=== PATIENT | female | born 1960 | race Caucasian/White ===

== ENCOUNTER 2024-09-09 13:21 | Outpatient (AMB) | payer MEDICAID, SELFPAY ==
[2024-09-09 13:36] VITALS: BP 114/73; PULSE 74; RESP 18; TEMP 36.4; O2SAT 98; BMI 25.0
--- NOTE | 2024-09-09 13:36 | PD.ORTHCLVIS ---
Vital signs 09/09/24 13:36 Height 1.6 m Height Method Stated Weight 64.07 kg Weight Measurement Method Standing Scale BMI 25.0 BP 114/73 Blood Pressure Source Automatic Cuff Blood Pressure Location Left Upper Arm Position Sitting Respiration 18 Pulse 74 Pulse Source Monitor Temp 97.5 F Temp Source Temporal Artery Scan Pulse Oximetry (%) 98 Oxygen Delivery Method Room Air Med/Allergies Allergies & Medications Allergies No Known Allergies Allergy (Verified 09/09/24 13:37) Medication Reconciliation baclofen 10 mg tablet 10 mg PO QDAY 09/09/24 [History Confirmed 09/09/24] cholecalciferol (vitamin D3) 10 mcg (400 unit) capsule 10 mcg PO QDAY 09/09/24 [History Confirmed 09/09/24] fluconazole 100 mg tablet 100 mg PO QDAY 09/09/24 [History Confirmed 09/09/24] folic acid 1 mg tablet 1 mg PO QDAY 09/09/24 [History Confirmed 09/09/24] gabapentin 400 mg capsule 400 mg PO BID 09/09/24 [History Confirmed 09/09/24] meloxicam 15 mg tablet 15 mg PO QDAY 09/09/24 [History Confirmed 09/09/24] sertraline 50 mg tablet 50 mg PO QDAY 09/09/24 [History Confirmed 09/09/24] solifenacin 10 mg tablet 10 mg PO QDAY 09/09/24 [History Confirmed 09/09/24] Exam Exam Breathing is nonlabored. Patient has a normal mood and affect. Bilateral extremities were evaluated and demonstrates sensation intact to light touch. Palpable pedal pulses are present. No significant edema is present. Bilateral hips were examined. The patient has no pain with log roll of the hips. Internal rotation to 30 degrees and external rotation to 30 degrees is painless. Negative FADIR. Left knee incision is clean dry and intact The right knee was also examined. The right knee is in varus alignment. Range of motion from 0-115 degrees. Knee is stable to varus and valgus as well as AP translation with <5mm. Patient has a negative McMurrays. There is no pain with patellofemoral compression and no crepitus noted. The knee is tender to palpation medially. Assessment and Plan Problem List (1) Arthritis of right knee: Status: Acute Plan: Patient is a 63-year-old female with right knee pain and right knee arthritis of significant severity. I would like to get weightbearing x-rays. We can discuss different treatment options depending on what that she has. She is post start physical therapy in 2 weeks as well Office Procedures GNS Level of Care Nursing/Assessment Patient Status: Initial/New Patient Nursing Assessment/Reassesment: Medication Reconciliation, Update PMH in EMR and Vital Signs Coordination of Care: Complex Care and Chronic Disease 1-5, Education Complex Pt/Fam, Consent,records obtained, informed consent, 1 Ins Authorization, Lab and Imaging orders, Results/Orders obtained and Staff clarify orders New Patient Charge New Patient Point Assignment: 1124 New Patient Point Charge: VALVE AND REGULATOR REPAIRER Level 4 ([id number]) MA Intake Visit Data Collection New Patient or Established: New Patient (never been to [facility]) Reason for Visit:: RIGHT KNEE PAIN Seen by Clinical Staff ONLY (RN/MA): No PCP or OBGYN visit in last 3 months: Yes Hx Now: No Do You Feel Safe at Home: Yes Authorities Contacted: N/A Questionairres Past Medical History Past Medical History Have you ever been diagnosed with any of the following: Respiratory Problems Smoking: No Smoking Exposure: No Musculoskeletal Problems Rheumatoid Arthritis: Yes Surgical History Total Knee Replacement: Yes (01/08/2024 DR GALINA RODRIGUEZ) Subjective Visit Visit for: new patient and knee Immunization / Flu Flu Vaccine in the Last 12 Months: No Flu Vaccine Exclusion Criteria: No Exclusion Criteria History of Present Illness Chief complaint: right knee pain Date of 1st surgery (if applicable): 08/2023 Mirtha is a pleasant 63-year-old female with right knee pain and right knee arthritis of significant severity. She had a recent left total knee replacement exactly 1 year ago. She had multiple injections and has rheumatoid arthritis and takes meloxicam and rheumatoid arthritis medications. She is not on an immunomodulators at this time. She reports the pain is excruciating Personal History Occupation: [employer] Pain Pain level (0-10): 10 Pain duration: CONSTANT Pain location: inside (medial), outside (lateral), anterior and posterior Pain quality: sharp, dull and aching Pain timing: night, increases with activity and stairs Associated signs & symptoms: weakness Ambulatory data Ambulatory device: cane Treatments Number of previous injections: 1 Improvement with previous injections: No Improvement with PT: No Improvement with NSAIDS: no Review of Systems Review of Systems: All systems negative unless otherwise noted in HPI.
--- NOTE | 2024-09-09 13:54 | XR_ITS ---
Examination: Bilateral AP knees single view PA lateral axial right knee 3 views TECHNIQUE: Bilateral AP knees standing single view PA standing right knee flexion, standing lateral right knee, axial right knee 3 views total 4 views Exam date and time: September 09, 2024 1404 hours INDICATIONS: Right knee pain months getting worse FINDINGS: Prominent osteopenia Advanced narrowing lateral joint space right knee Moderate to advanced narrowing medial joint space right knee Mild to moderate narrowing patellofemoral joint No right or left knee fracture Total left knee arthroplasty with satisfactory alignment IMPRESSION: Advanced narrowing lateral joint space right knee Moderate to advanced medial joint space right knee
== END 2024-09-09 14:02 | disposition home or self-care (01) ==
LOC: HODSRG 13:21
PROVIDERS: PCP Family Medicine; Referring Provider Family Medicine; Supervising Provider Orthopaedic Surgery Adult Reconstructive Orthopaedic Surgery; Visit Provider Orthopaedic Surgery Adult Reconstructive Orthopaedic Surgery
DX: M17.11 Unilateral primary osteoarthritis, right knee (principal); M25.562 Pain in left knee; M25.561 Pain in right knee; Z96.652 Presence of left artificial knee joint
CPT/HCPCS: 73564; 99204; G0463

== ENCOUNTER 2024-10-02 13:44 | Outpatient (AMB) | payer MEDICAID, SELFPAY ==
--- NOTE | 2024-10-02 13:52 | ORTHONT_ITS ---
Vital signs 10/02/24 13:53 Height 1.6 m Height Method Stated Weight 67.188 kg Weight Measurement Method Standing Scale BMI 26.2 BP 104/76 Blood Pressure Source Automatic Cuff Blood Pressure Location Right Upper Arm Position Sitting Respiration 18 Pulse 92 Pulse Source Monitor Temp 98.2 F Temp Source Temporal Artery Scan Pulse Oximetry (%) 97 Oxygen Delivery Method Room Air Med/Allergies Allergies & Medications Allergies No Known Allergies Allergy (Verified 10/02/24 13:54) Medication Reconciliation baclofen 10 mg tablet 10 mg PO QDAY 09/09/24 [History Confirmed 10/02/24] cholecalciferol (vitamin D3) 10 mcg (400 unit) capsule 10 mcg PO QDAY 09/09/24 [History Confirmed 10/02/24] fluconazole 100 mg tablet 100 mg PO QDAY 09/09/24 [History Confirmed 10/02/24] folic acid 1 mg tablet 1 mg PO QDAY 09/09/24 [History Confirmed 10/02/24] gabapentin 400 mg capsule 400 mg PO BID 09/09/24 [History Confirmed 10/02/24] meloxicam 15 mg tablet 15 mg PO QDAY 09/09/24 [History Confirmed 10/02/24] sertraline 50 mg tablet 50 mg PO QDAY 09/09/24 [History Confirmed 10/02/24] solifenacin 10 mg tablet 10 mg PO QDAY 09/09/24 [History Confirmed 10/02/24] Exam Exam Breathing is nonlabored. Patient has a normal mood and affect. Bilateral extremities were evaluated and demonstrates sensation intact to light touch. Palpable pedal pulses are present. No significant edema is present. Bilateral hips were examined. The patient has no pain with log roll of the hips. Internal rotation to 30 degrees and external rotation to 30 degrees is painless. Negative FADIR. Left knee incision is clean dry and intact The right knee was also examined. The right knee is in varus alignment. Range of motion from 0-115 degrees. Knee is stable to varus and valgus as well as AP translation with <5mm. Patient has a negative McMurrays. There is no pain with patellofemoral compression and no crepitus noted. The knee is tender to palpation medially. X-rays from [facility] demonstrates complete joint space obliteration laterally and Assessment and Plan Problem List (1) Arthritis of right knee: Status: Acute Plan: Patient is a 63-year-old female with right knee pain and right knee arthritis of significant severity. She would like to try cortisone injection today. Recommend knee cortisone injection as patient would like to proceed with conservative treatment at this time. The risks and benefits of the procedure were reviewed with the patient and patient gave verbal consent to continue with the procedure. Procedure: performed by Dr. Moreira Using sterile technique the Right knee was thoroughly prepped with alcohol, and approximately 1 cc of Kenalog 40 mg/mL and 4 cc of 1% lidocaine was injected without resistance into the medial tibial femoral joint space. The patient to lerated the procedure. Office Procedures GNS Level of Care Nursing/Assessment Patient Status: Established Patient Nursing Assessment/Reassesment: Medication Reconciliation, Update PMH in EMR and Vital Signs Coordination of Care: Complex Care and Chronic Disease 1-5, Education Complex Pt/Fam, Consent,records obtained, informed consent, Results/Orders obtained and Staff clarify orders Established Patient Charge Established Patient Point Assignment: 95 Established Patient Point Charge: EP Level 3 (80-115) Surgical Proc/IM SQ injection Major Surgical Procedure: Yes (KNEE INJECTION) Medication Given Medication Given Medication Given: Yes Documented Dose Given: 4 Route: Infiitration Medication Given Medication Given Medication Given: Yes Documented Dose Given: 1 Route: Infiitration Office Meds Xylocaine 10 mg/mL (1 %) injection solution Performing Provider: Ike Moreira MD Performing Location: [facility] Administered by: Ike Moreira MD on 10/02/24 14:18 Dose Route Admin Location Dispensed Lot Number Expiration Date [facility] Distribution Specialist 20 mL Infiltration 20 mL [id number] 09/11/27 96253-807-01 [facility] triamcinolone acetonide 40 mg/mL suspension for injection Performing Provider: Ike Moreira MD Performing Location: [facility] Administered by: Ike Moreira MD on 10/02/24 14:18 Dose Route Admin Location Dispensed Lot Number Expiration Date [facility] Distribution Specialist 40 mg intra-articular KNEE 1 mL [id number] 05/12/26 3871-2262-11 [facility] [place] Intake Visit Data Collection New Patient or Established: Established Patient (seen at [facility] within 3 years) Reason for Visit:: F/U XRAY RESULTS Seen by Clinical Staff ONLY (RN/MA): No Verbal consent obtained for Telemed visit?: No Certified Orthotist Required: No PCP or OBGYN visit in last 3 months: Yes Hx Now: No Do You Feel Safe at Home: Yes Authorities Contacted: N/A Questionairres Past Medical History Past Medical History Have you ever been diagnosed with any of the following: Respiratory Problems Smoking: No Smoking Exposure: No Musculoskeletal Problems Rheumatoid Arthritis: Yes Surgical History Total Knee Replacement: Yes (01/08/2024 DR GALINA RODRIGUEZ) Subjective Visit Visit for: follow up visit and knee Immunization / Flu Flu Vaccine in the Last 12 Months: No Flu Vaccine Exclusion Criteria: No Exclusion Criteria History of Present Illness Chief complaint: F/U XRAYS Date of 1st surgery (if applicable): 08/2023 Mirtha is a pleasant 63-year-old female with right knee pain and right knee arth ritis of significant severity. She had a recent left total knee replacement exactly 1 year ago. She had multiple injections and has rheumatoid arthritis and takes meloxicam and rheumatoid arthritis medications. She is not on an immunomodulators at this time. She reports the pain is excruciating Personal History Occupation: RETIRED [employer] PMH: BMI BMI Counceling provided: Yes Pain Pain level (0-10): 10 Pain duration: ALL DAY Pain location: inside (medial), outside (lateral), anterior and posterior Pain quality: sharp, dull and aching Pain timing: increases with activity Associated signs & symptoms: weakness Ambulatory data Ambulatory device: cane Treatments Number of previous injections: 1 Improvement with previous injections: No Improvement with PT: No Improvement with NSAIDS: no Review of Systems Review of Systems: All systems negative unless otherwise noted in HPI.
[2024-10-02 13:53] VITALS: BP 104/76; PULSE 92; RESP 18; TEMP 36.8; O2SAT 97; BMI 26.2
== END 2024-10-02 14:28 | disposition home or self-care (01) ==
PROVIDERS: PCP Family Medicine; Referring Provider Family Medicine; Supervising Provider Orthopaedic Surgery Adult Reconstructive Orthopaedic Surgery; Visit Provider Orthopaedic Surgery Adult Reconstructive Orthopaedic Surgery
DX: M17.11 Unilateral primary osteoarthritis, right knee (principal); M25.561 Pain in right knee; Z96.652 Presence of left artificial knee joint
CPT/HCPCS: 20610; 99213; J3301; J3490; G0463

== ENCOUNTER 2025-01-06 14:24 | Outpatient (AMB) | payer MEDICAID, SELFPAY ==
--- NOTE | 2025-01-06 14:37 | PD.ORTHCLVIS ---
Vital signs 01/06/25 14:38 Height 1.6 m Height Method Measured Weight 69.967 kg Weight Measurement Method Standing Scale BMI 27.3 BP 115/73 Blood Pressure Source Automatic Cuff Blood Pressure Location Left Upper Arm Position Sitting Respiration 20 Pulse 83 Pulse Source Monitor Temp 98.2 F Temp Source Temporal Artery Scan Pulse Oximetry (%) 93 L Oxygen Delivery Method Room Air Med/Allergies Allergies & Medications Allergies No Known Allergies Allergy (Verified 01/06/25 14:39) Medication Reconciliation baclofen 10 mg tablet 10 mg PO QDAY 09/09/24 [History Confirmed 01/06/25] cholecalciferol (vitamin D3) 10 mcg (400 unit) capsule 10 mcg PO QDAY 09/09/24 [History Confirmed 01/06/25] fluconazole 100 mg tablet 100 mg PO QDAY 09/09/24 [History Confirmed 01/06/25] folic acid 1 mg tablet 1 mg PO QDAY 09/09/24 [History Confirmed 01/06/25] gabapentin 400 mg capsule 400 mg PO BID 09/09/24 [History Confirmed 01/06/25] meloxicam 15 mg tablet 15 mg PO QDAY 09/09/24 [History Confirmed 01/06/25] sertraline 50 mg tablet 50 mg PO QDAY 09/09/24 [History Confirmed 01/06/25] solifenacin 10 mg tablet 10 mg PO QDAY 09/09/24 [History Confirmed 01/06/25] Exam Exam Breathing is nonlabored. Patient has a normal mood and affect. Bilateral extremities were evaluated and demonstrates sensation intact to light touch. Palpable pedal pulses are present. No significant edema is present. Bilateral hips were examined. The patient has no pain with log roll of the hips. Internal rotation to 30 degrees and external rotation to 30 degrees is painless. Negative FADIR. Left knee incision is clean dry and intact The right knee was also examined. The right knee is in varus alignment. Range of motion from 0-115 degrees. Knee is stable to varus and valgus as well as AP translation with <5mm. Patient has a negative McMurrays. There is no pain with patellofemoral compression and no crepitus noted. The knee is tender to palpation medially. X-rays from [facility] demonstrates complete joint space obliteration laterally Assessment and Plan Problem List (1) Arthritis of right knee: Status: Acute Plan: Patient is a 63-year-old female with right knee pain and right knee arthritis of significant severity. She has severe rheumatoid arthritis and she stopped the infusioon one month ago. The nature and purpose of the total knee replacement, alternative method(s) of treatment, the material risks involved, and the possibility of complications were fully explained to the patient. The patient does NOT have any of the following contraindications to TKA: - Active infection of the knee joint, OR - Active systemic bacteremia, OR - Active skin infection or open wound at surgical site, OR - Neuropathic arthritis, OR - Severe, rapidly progressive neurological disease, OR - Severe medical condition that makes risks of surgery outweigh the potential benefit. ?The patient was told the most common risks and complications associated with a total knee replacement include, but are not limited to: blood clots in the leg, stiffness, fatal pulmonary embolism, dislocation of the prosthesis, intraoperative and postoperative fractures of the femur or tibia, infection, failure of the prosthesis or grafting materials, complications from anesthesia, reactions to blood transfusions, postoperative leg length inequality, instability of the knee replacement, nerve damage or injury, vascular injury, delayed wound healing, infection, other injury or even . In addition, there are risks associated with anesthesia given during this operation. Also, the patient was told that after undergoing a total knee replacement there may still be persistent pain or disability. The patient was informed that the success of this operation in part depends upon the mechanical devices which are going to be implanted and that these devices can fail or malfunction, and may need to be repaired or replaced and there are no guarantees as to the longevity of this device or its parts and that it or its parts could fail prematurely. The importance of compliance with physical therapy was also discussed with the patient. The patient was also notified that during the course of surgery, there may be a need to use bone graft from donors, and that any bone graft used will be carefully screened for communicable diseases, including AIDS, hepatitis, Hussain-Creutzfeldt, or other diseases, but despite the screening procedures, there is a small chance that they could contract one of these diseases. Finally, the patient was asked to follow completely and fully with all advice and recommended treatments, and that recovery and ultimate outcome are affected by their compliance with recommended treatment. We discussed the risks, benefits and treatment alternatives, and the patient is interested in proceeding with surgery. We will try to set this up as expeditiously as possible. Office Procedures GNS Level of Care Nursing/Assessment Patient Status: Established Patient Nursing Assessment/Reassesment: Medication Reconciliation, Orthostatic Vitals, Update PMH in EMR and Vital Signs Coordination of Care: Complex Care and Chronic Disease 1-5, Education Complex Pt/Fam, Consent,records obtained, informed consent, Results/Orders obtained and Staff clarify orders Established Patient Charge Established Patient Point Assignment: 105 Established Patient Point Charge: EP Level 3 (80-115) MA Intake Visit Data Collection New Patient or Established: Established Patient (seen at [facility] within 3 years) Reason for Visit:: 3 MONTH FOLLOW UP Seen by Clinical Staff ONLY (RN/MA): No Verbal consent obtained for Telemed visit?: No Dental Appliance Repairer Required: No PCP or OBGYN visit in last 3 months: Yes Hx Now: No Do You Feel Safe at Home: Yes Authorities Contacted: N/A Questionairres Past Medical History Past Medical History Have you ever been diagnosed with any of the following: Respiratory Problems Smoking: No Smoking Exposure: No Musculoskeletal Problems Rheumatoid Arthritis: Yes Surgical History Total Knee Replacement: Yes (01/08/2024 DR GALINA RODRIGUEZ) Subjective Visit Visit for: follow up visit and knee Immunization / Flu Flu Vaccine in the Last 12 Months: No Flu Vaccine Exclusion Criteria: No Exclusion Criteria History of Present Illness Chief complaint: F/U 3 MONTH Date of 1st surgery (if applicable): 08/2023 Mirtha is a pleasant 63-year-old female with right knee pain and right knee arthritis of significant severity. She had a recent left total knee replacement exactly 1 year ago. She had multiple injections and has rheumatoid arthritis and takes meloxicam and rheumatoid arthritis medications. She is not on an immunomodulators at this time. She reports the pain is excruciating. Personal History Occupation: RETIRED [employer] PMH: BMI BMI Counceling provided: Yes Pain Pain level (0-10): 10 Pain duration: ALL DAY Pain location: inside (medial), outside (lateral), anterior and posterior Pain quality: sharp, dull and aching Pain timing: increases with activity Associated signs & symptoms: weakness Ambulatory data Ambulatory device: cane Treatments Number of previous injections: 1 Improvement with previous injections: No Improvement with PT: No Improvement with NSAIDS: no Review of Systems Review of Systems: All systems negative unless otherwise noted in HPI.
[2025-01-06 14:38] VITALS: BP 115/73; PULSE 83; RESP 20; TEMP 36.8; O2SAT 93; BMI 27.3
== END 2025-01-06 14:45 | disposition home or self-care (01) ==
LOC: HODSRG 14:24
PROVIDERS: PCP Family Medicine; Referring Provider Family Medicine; Supervising Provider Orthopaedic Surgery Adult Reconstructive Orthopaedic Surgery; Visit Provider Orthopaedic Surgery Adult Reconstructive Orthopaedic Surgery
DX: M17.11 Unilateral primary osteoarthritis, right knee (principal); M25.561 Pain in right knee; M06.9 Rheumatoid arthritis, unspecified; Z96.652 Presence of left artificial knee joint
CPT/HCPCS: 99213; G0463

== ENCOUNTER 2025-02-12 15:02 | Outpatient (AMB) | payer MEDICAID, SELFPAY ==
[2025-02-12 15:16] VITALS: BP 106/63; PULSE 97; RESP 18; TEMP 36.7; O2SAT 93; BMI 26.4
--- NOTE | 2025-02-12 15:16 | PD.ORTHCLVIS ---
Vital signs 02/12/25 15:16 Height 1.6 m Height Method Measured Weight 67.784 kg Weight Measurement Method Standing Scale BMI 26.4 BP 106/63 Blood Pressure Source Automatic Cuff Blood Pressure Location Left Upper Arm Position Sitting Respiration 18 Pulse 97 Pulse Source Monitor Temp 98.0 F Temp Source Temporal Artery Scan Pulse Oximetry (%) 93 L Oxygen Delivery Method Room Air Med/Allergies Allergies & Medications Allergies No Known Allergies Allergy (Verified 02/12/25 15:17) Medication Reconciliation baclofen 10 mg tablet 10 mg PO QDAY 09/09/24 [History Confirmed 02/12/25] cholecalciferol (vitamin D3) 10 mcg (400 unit) capsule 10 mcg PO QDAY 09/09/24 [History Confirmed 02/12/25] fluconazole 100 mg tablet 100 mg PO QDAY 09/09/24 [History Confirmed 02/12/25] folic acid 1 mg tablet 1 mg PO QDAY 09/09/24 [History Confirmed 02/12/25] gabapentin 400 mg capsule 400 mg PO BID 09/09/24 [History Confirmed 02/12/25] meloxicam 15 mg tablet 15 mg PO QDAY 09/09/24 [History Confirmed 02/12/25] sertraline 50 mg tablet 50 mg PO QDAY 09/09/24 [History Confirmed 02/12/25] solifenacin 10 mg tablet 10 mg PO QDAY 09/09/24 [History Confirmed 02/12/25] Exam Exam Breathing is nonlabored. Patient has a normal mood and affect. Bilateral extremities were evaluated and demonstrates sensation intact to light touch. Palpable pedal pulses are present. No significant edema is present. Bilateral hips were examined. The patient has no pain with log roll of the hips. Internal rotation to 30 degrees and external rotation to 30 degrees is painless. Negative FADIR. Left knee incision is clean dry and intact The right knee was also examined. The right knee is in varus alignment. Range of motion from 0-115 degrees. Knee is stable to varus and valgus as well as AP translation with <5mm. Patient has a negative McMurrays. There is no pain with patellofemoral compression and no crepitus noted. The knee is tender to palpation medially. X-rays from [facility] demonstrates complete joint space obliteration laterally Assessment and Plan Problem List (1) Arthritis of right knee: Status: Acute Plan: Patient is a 63-year-old female with right knee pain and right knee arthritis of significant severity. She has severe rheumatoid arthritis and she stopped the infusioon one month ago. The nature and purpose of the total knee replacement, alternative method(s) of treatment, the material risks involved, and the possibility of complications were fully explained to the patient. The patient does NOT have any of the following contraindications to TKA: - Active infection of the knee joint, OR - Active systemic bacteremia, OR - Active skin infection or open wound at surgical site, OR - Neuropathic arthritis, OR - Severe, rapidly progressive neurological disease, OR - Severe medical condition that makes risks of surgery outweigh the potential benefit. ?The patient was told the most common risks and complications associated with a total knee replacement include, but are not limited to: blood clots in the leg, stiffness, fatal pulmonary embolism, dislocation of the prosthesis, intraoperative and postoperative fractures of the femur or tibia, infection, failure of the prosthesis or grafting materials, complications from anesthesia, reactions to blood transfusions, postoperative leg length inequality, instability of the knee replacement, nerve damage or injury, vascular injury, delayed wound healing, infection, other injury or even . In addition, there are risks associated with anesthesia given during this operation. Also, the patient was told that after undergoing a total knee replacement there may still be persistent pain or disability. The patient was informed that the success of this operation in part depends upon the mechanical devices which are going to be implanted and that these devices can fail or malfunction, and may need to be repaired or replaced and there are no guarantees as to the longevity of this device or its parts and that it or its parts could fail prematurely. The importance of compliance with physical therapy was also discussed with the patient. The patient was also notified that during the course of surgery, there may be a need to use bone graft from donors, and that any bone graft used will be carefully screened for communicable diseases, including AIDS, hepatitis, Hussain-Creutzfeldt, or other diseases, but despite the screening procedures, there is a small chance that they could contract one of these diseases. Finally, the patient was asked to follow completely and fully with all advice and recommended treatments, and that recovery and ultimate outcome are affected by their compliance with recommended treatment. We discussed the risks, benefits and treatment alternatives, and the patient is interested in proceeding with surgery. We will try to set this up as expeditiously as possible. Office Procedures GNS Level of Care Nursing/Assessment Patient Status: Established Patient Nursing Assessment/Reassesment: Medication Reconciliation, Update PMH in EMR and Vital Signs Coordination of Care: Complex Care and Chronic Disease 1-5, Education Complex Pt/Fam, Consent,records obtained, informed consent, Results/Orders obtained and Staff clarify orders Established Patient Charge Established Patient Point Assignment: 95 Established Patient Point Charge: EP Level 3 (80-115) MA Intake Visit Data Collection New Patient or Established: Established Patient (seen at [facility] within 3 years) Reason for Visit:: 3 MONTH FOLLOW UP Seen by Clinical Staff ONLY (RN/MA): No Verbal consent obtained for Telemed visit?: No Flotation Tender Required: No PCP or OBGYN visit in last 3 months: Yes Hx Now: No Do You Feel Safe at Home: Yes Authorities Contacted: N/A Questionairres Past Medical History Past Medical History Have you ever been diagnosed with any of the following: Respiratory Problems Smoking: No Smoking Exposure: No Musculoskeletal Problems Rheumatoid Arthritis: Yes Surgical History Total Knee Replacement: Yes (01/08/2024 DR GALINA RODRIGUEZ) Subjective Visit Visit for: follow up visit and knee Immunization / Flu Flu Vaccine in the Last 12 Months: No Flu Vaccine Exclusion Criteria: No Exclusion Criteria History of Present Illness Chief complaint: F/U 3 MONTH Date of 1st surgery (if applicable): 08/2023 Mirtha is a pleasant 63-year-old female with right knee pain and right knee arthritis of significant severity. She had a recent left total knee replacement exactly 1 year ago. She had multiple injections and has rheumatoid arthritis and takes meloxicam and rheumatoid arthritis medications. She is not on an immunomodulators at this time. She reports the pain is excruciating. Personal History Occupation: RETIRED [employer] PMH: BMI BMI Counceling provided: Yes Pain Pain level (0-10): 10 Pain duration: ALL DAY Pain location: inside (medial), outside (lateral), anterior and posterior Pain quality: sharp, dull and aching Pain timing: increases with activity Associated signs & symptoms: weakness Ambulatory data Ambulatory device: cane Treatments Number of previous injections: 1 Improvement with previous injections: No Improvement with PT: No Improvement with NSAIDS: no Review of Systems Review of Systems: All systems negative unless otherwise noted in HPI.
--- NOTE | 2025-02-18 13:33 | PD.ORTHCLVIS ---
Vital signs 02/12/25 15:16 02/18/25 13:35 Height 1.6 m Height Method Measured Weight 67.784 kg Weight Measurement Method Standing Scale BMI 26.4 BP 106/63 106/63 Blood Pressure Source Automatic Cuff Blood Pressure Location Left Upper Arm Position Sitting Respiration 18 18 Pulse 97 97 Pulse Source Monitor Temp 98.0 F 98.0 F Temp Source Temporal Artery Scan Pulse Oximetry (%) 93 L 93 L Oxygen Delivery Method Room Air Med/Allergies Allergies & Medications Allergies No Known Allergies Allergy (Verified 02/12/25 15:17) Medication Reconciliation baclofen 10 mg tablet 10 mg PO QDAY 09/09/24 [History Confirmed 02/12/25] cholecalciferol (vitamin D3) 10 mcg (400 unit) capsule 10 mcg PO QDAY 09/09/24 [History Confirmed 02/12/25] fluconazole 100 mg tablet 100 mg PO QDAY 09/09/24 [History Confirmed 02/12/25] folic acid 1 mg tablet 1 mg PO QDAY 09/09/24 [History Confirmed 02/12/25] gabapentin 400 mg capsule 400 mg PO BID 09/09/24 [History Confirmed 02/12/25] meloxicam 15 mg tablet 15 mg PO QDAY 09/09/24 [History Confirmed 02/12/25] sertraline 50 mg tablet 50 mg PO QDAY 09/09/24 [History Confirmed 02/12/25] solifenacin 10 mg tablet 10 mg PO QDAY 09/09/24 [History Confirmed 02/12/25] Exam Exam Breathing is nonlabored. Patient has a normal mood and affect. Bilateral extremities were evaluated and demonstrates sensation intact to light touch. Palpable pedal pulses are present. No significant edema is present. Bilateral hips were examined. The patient has no pain with log roll of the hips. Internal rotation to 30 degrees and external rotation to 30 degrees is painless. Negative FADIR. Left knee incision is clean dry and intact The right knee was also examined. The right knee is in varus alignment. Range of motion from 0-115 degrees. Knee is stable to varus and valgus as well as AP translation with <5mm. Patient has a negative McMurrays. There is no pain with patellofemoral compression and no crepitus noted. The knee is tender to palpation medially. X-rays from [facility] demonstrates complete joint space obliteration laterally Assessment and Plan Problem List (1) Arthritis of right knee: Status: Acute Plan: Patient is a 63-year-old female with right knee pain and right knee arthritis of significant severity. She has severe rheumatoid arthritis and she stopped the infusioon one month ago. The nature and purpose of the total knee replacement, alternative method(s) of treatment, the material risks involved, and the possibility of complications were fully explained to the patient. The patient does NOT have any of the following contraindications to TKA: - Active infection of the knee joint, OR - Active systemic bacteremia, OR - Active skin infection or open wound at surgical site, OR - Neuropathic arthritis, OR - Severe, rapidly progressive neurological disease, OR - Severe medical condition that makes risks of surgery outweigh the potential benefit. ?The patient was told the most common risks and complications associated with a total knee replacement include, but are not limited to: blood clots in the leg, stiffness, fatal pulmonary embolism, dislocation of the prosthesis, intraoperative and postoperative fractures of the femur or tibia, infection, failure of the prosthesis or grafting materials, complications from anesthesia, reactions to blood transfusions, postoperative leg length inequality, instability of the knee replacement, nerve damage or injury, vascular injury, delayed wound healing, infection, other injury or even . In addition, there are risks associated with anesthesia given during this operation. Also, the patient was told that after undergoing a total knee replacement there may still be persistent pain or disability. The patient was informed that the success of this operation in part depends upon the mechanical devices which are going to be implanted and that these devices can fail or malfunction, and may need to be repaired or replaced and there are no guarantees as to the longevity of this device or its parts and that it or its parts could fail prematurely. The importance of compliance with physical therapy was also discussed with the patient. The patient was also notified that during the course of surgery, there may be a need to use bone graft from donors, and that any bone graft used will be carefully screened for communicable diseases, including AIDS, hepatitis, Hussain-Creutzfeldt, or other diseases, but despite the screening procedures, there is a small chance that they could contract one of these diseases. Finally, the patient was asked to follow completely and fully with all advice and recommended treatments, and that recovery and ultimate outcome are affected by their compliance with recommended treatment. We discussed the risks, benefits and treatment alternatives, and the patient is interested in proceeding with surgery. We will try to set this up as expeditiously as possible. Plan Patient is set to have knee replacement surgery on 03/09/25 and will require at home health for the first two weeks post op. Office Procedures GNS Level of Care Nursing/Assessment Patient Status: Established Patient Nursing Assessment/Reassesment: Medication Reconciliation, Update PMH in EMR and Vital Signs Coordination of Care: Complex Care and Chronic Disease 1-5, Education Complex Pt/Fam, Consent,records obtained, informed consent, Results/Orders obtained and Staff clarify orders Established Patient Charge Established Patient Point Assignment: 95 Established Patient Point Charge: EP Level 3 (80-115) Questionairres Past Medical History Past Medical History Have you ever been diagnosed with any of the following: Respiratory Problems Smoking: No Smoking Exposure: No Musculoskeletal Problems Rheumatoid Arthritis: Yes Surgical History Total Knee Replacement: Yes (01/08/2024 DR GALINA RODRIGUEZ) Subjective Visit Visit for: follow up visit and knee Immunization / Flu Flu Vaccine in the Last 12 Months: No Flu Vaccine Exclusion Criteria: No Exclusion Criteria History of Present Illness Chief complaint: F/U 3 MONTH Date of 1st surgery (if applicable): 08/2023 Mirtha is a pleasant 63-year-old female with right knee pain and right knee arthritis of significant severity. She had a recent left total knee replacement exactly 1 year ago. She had multiple injections and has rheumatoid arthritis and takes meloxicam and rheumatoid arthritis medications. She is not on an immunomodulators at this time. She reports the pain is excruciating. Personal History Occupation: RETIRED [employer] PMH: BMI BMI Counceling provided: Yes Pain Pain level (0-10): 10 Pain duration: ALL DAY Pain location: inside (medial), outside (lateral), anterior and posterior Pain quality: sharp, dull and aching Pain timing: increases with activity Associated signs & symptoms: weakness Ambulatory data Ambulatory device: cane Treatments Number of previous injections: 1 Improvement with previous injections: No Improvement with PT: No Improvement with NSAIDS: no Review of Systems Review of Systems: All systems negative unless otherwise noted in HPI.
[2025-02-18 13:35] VITALS: BP 106/63; PULSE 97; RESP 18; TEMP 36.7; O2SAT 93
== END 2025-02-12 15:30 | disposition home or self-care (01) ==
LOC: HODSRG 15:02
PROVIDERS: PCP Family Medicine; Referring Provider Family Medicine; Supervising Provider Orthopaedic Surgery Adult Reconstructive Orthopaedic Surgery; Visit Provider Orthopaedic Surgery Adult Reconstructive Orthopaedic Surgery
DX: M25.561 Pain in right knee (principal); M17.11 Unilateral primary osteoarthritis, right knee; Z96.652 Presence of left artificial knee joint; M06.9 Rheumatoid arthritis, unspecified
CPT/HCPCS: 99213; G0463

== ENCOUNTER → 2025-02-18 | Outpatient (CLI) | payer MEDICAID, SELFPAY ==
--- NOTE | 2025-02-18 16:30 | XR_ITS ---
Examination: CT right lower extremity, without contrast. 2-D sagittal reconstructions. 2-D coronal reconstructions. 3-D reconstructions. Date and time of exam: February 18, 2025, 1616 hours INDICATIONS: Diagnosis unilateral primary osteoarthritis right knee, right knee pain 1 year CTDI: vol (mGy): 10.7 DLP: (mGycm): 1036 Technique: Multiple 1.25 mm axial sections of the right lower extremity without intravenous contrast have been obtained. 2-D sagittal and coronal reconstructions have been obtained. 3-D reconstructions have been obtained. Low dose protocols were performed. One or more of the following dose reduction techniques were used; automated exposure control, adjustment of the mA and/or KV according to patient size, use of iterative reconstruction technique. Findings: Moderate osteopenia Moderate narrowing right hip joint No hip fracture or avascular necrosis Severe narrowing medial joint space right knee Significant osteoarthritis lateral and patellofemoral joints 10 mm chronic lateral subluxation patella No fracture IMPRESSION: Advanced right knee tricompartment osteoarthritis
== END | disposition home or self-care (01) ==
LOC: CCTX 15:29
PROVIDERS: PCP Family Medicine; Referring Provider Orthopaedic Surgery Adult Reconstructive Orthopaedic Surgery; Visit Provider Orthopaedic Surgery Adult Reconstructive Orthopaedic Surgery
DX: M17.11 Unilateral primary osteoarthritis, right knee (principal)
CPT/HCPCS: 73700

== ENCOUNTER 2025-03-09 07:15 | Day surgery (SDC) | payer MEDICAID, SELFPAY ==
--- NOTE | 2025-03-06 06:50 | EKG_ITS ---
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
[2025-03-06 13:25] VITALS: BMI 27.2
[2025-03-06 14:13] LABS: Basophils # (Auto) 0.0 Thou/mm3 (0.0-0.2); Basophils % (Auto) 1 % (0-2.5); Eosinophils # (Auto) 0.1 Thou/mm3 (0.0-0.5); Eosinophils % (Auto) 2 % (0-10); Hematocrit 35.8 % (36.0-46.0); Hemoglobin 12.0 g/dL (12.0-16.0); Immature Granulocytes Auto 0.01 Thou/mm3 (0.00-0.00); Lymphocytes # (Auto) 1.1 Thou/mm3 (1.0-4.8); Lymphocytes % (Auto) 18 % (10-50); Mean Corpuscular HGB Conc 33.5 g/dl (31.0-37.0); Mean Corpuscular Hemoglobin 30.1 pg (25.0-35.0); Mean Corpuscular Volume 90 fL (80-100); Monocytes # (Auto) 0.6 Thou/mm3 (0.0-0.8); Monocytes % (Auto) 10 % (0-12); Neutrophils # (Auto) 4.1 Thou/mm3 (1.8-7.7); Neutrophils % (Auto) 69 % (37-80); Nucleated Red Blood Cell # 0.00 Thou/mm3 (0.00-0.00); Nucleated Red Blood Cell % 0 /100 WBC (0); Platelet Count 420 Thou/mm3 (140-440); RDW Standard Deviation 37.5 fL (36.4-46.3); Red Blood Count 3.99 Miln/mm3 (4.00-5.20); White Blood Count 5.9 Thou/mm3 (3.6-11.0)
[2025-03-06 14:30] LABS: INR 1.0 (0.9-1.3); Partial Thromboplastin Time 29.1 Seconds (22.0-36.0); Prothrombin Time 11.0 Seconds (9.0-12.2)
[2025-03-06 14:31] LABS: Alanine Aminotransferase 9 U/L (10-49); Albumin, Serum 4.4 gm/dL (3.4-4.8); Albumin/Globulin Ratio 1.4 (1.2-2.2); Alkaline Phosphatase 83 U/L (46-116); Anion Gap 8 (7-16); Aspartate Amino Transferase 18 U/L (0-34); BUN/Creatinine Ratio 10 Ratio (12-20); Bilirubin,Total 0.4 mg/dL (0.3-1.2); Blood Urea Nitrogen 5 mg/dL (9-23); Calcium 9.8 mg/dL (8.3-10.6); Calcium (Corrected) 9.8 mg/dL (8.5-10.1); Carbon Dioxide 25.8 mMol/L (20.0-31.0); Chloride 100 mMol/L (98-107); Creatinine (Component) 0.5 mg/dL (0.6-1.3); Estimated Creatinine Clearance 103.8 mL/min (>60); Globulin 3.2 gm/dL (2.3-3.5); Glucose 96 mg/dL (74-106); Osmolality,Calculated 265 (275-295); Potassium 4.3 mMol/L (3.4-5.1); Sodium 134 mMol/L (136-145); Total Protein 7.6 gm/dL (5.7-8.2); eGFR > 60 See Note
[2025-03-09] VITALS (20 sets, daily range): BP systolic 96–130; BP diastolic 54–82; PULSE 69–94; RESP 13–20; TEMP 36.5–36.9; O2SAT 95–100; BMI 25.9
[2025-03-09] MEDS: ACETAMINOPHEN 325 MG TABLET 650 MG PO (08:11)
[2025-03-09] MEDS: PREGABALIN 75 MG CAPSULE PO (08:12)
[2025-03-09] MEDS: MELOXICAM 7.5 MG TABLET PO (08:12)
--- NOTE | 2025-03-09 10:37 | PD.SUROPNT ---
Date of Procedure 03/09/25 Pre Op Diagnosis right knee rheumatoid arthritis Post Op Diagnosis right knee rheumatoid arthritis Procedure right total knee replacement fabienne Findings full thickness cartilage loss and osteophytes Procedure Description Indication: The patient has a long history of right knee pain. X-rays show degenerative arthritis involving the knee. Over the past several years the patient has had increasing pain, progressive limitation in function. He has failed conservative measures including activity modification, physical therapy, injections, anti-inflammatories, and assistive devices. After a lengthy discussion of the risks and benefits, the patient presents now for total knee replacement. The nature and purpose of the total knee replacement, alternative method(s) of treatment, the material risks involved, and the possibility of complications were fully explained to the patient. The patient was told the most common risks and complications associated with a total knee replacement include, but are not limited to blood clots in the leg, fatal pulmonary embolism, dislocation of the prosthesis, intraoperative and postoperative fractures of the femur or tibia, infection, failure of the prosthesis or grafting materials, complications from anesthesia, reactions to blood transfusions, postoperative leg length inequality, instability of the knee replacement, nerve damage or injury, vascular injury, delayed wound healing, infections, other injury or even . In addition, there are risks associated with anesthesia given during this operation, temporary or permanent numbness on the skin lateral to the incision can be a complication unique to total knee surgery, and kneeling can be painful after knee replacement surgery. Also, the patient was told that after undergoing a total knee replacement there may still be pain or disability. We discussed with the patient that we will be using a robot-assisted technology. We discussed that there is a possibility of converting to manual instrumentation. The patient was informed that the success of this operation in part depends upon the mechanical devices which are going to be implanted and that these devices can fail or malfunction, and may need to be repaired or replaced and there are no guarantees as to the longevity of this device or its part and that it or its parts could fail prematurely. Finally, the patient was asked to follow completely and fully with all advice and recommended treatments, and that recovery and ultimate outcome are affected by their compliance with recommended treatment. Surgical technique: Patient was marked and consented in the pre-operative area. The patient was brought to the operating room and placed on the operating table in a supine position. Prior to positioning, a timeout procedure was performed between the surgeon, the anesthesiologist, and the nursing staff where the patient and the operative side were identified and confirmed. After adequate general anesthetic was obtained, the right lower extremity was prepped and draped in the usual sterile fashion. A weight based dose of Cefazolin were administered within 1 hour prior to incision. The robot was preregistered and calibrated before the incision. The extremity was exsanguinated with an esmarch badge and tourniquet inflated to 250mmHg. A midline incision was made. A median parapatellar arthrotomy was made. The patella was subluxed laterally. A medial release was performed to expose the medial tibia. His femoral and tibial pins were placed through an intra incisional manner for both cases. Every effort was made to ensure that the distalmost aspect of the pin was hung in the second cortex. The arrays were then tightened several times to ensure that it was fixed for the remainder of the case. Both femoral and tibial checkpoints were then placed. We then went through the registration process of the bone. We then assessed the knee deformity and attempted to correct it. We also used the robot to aid in judging laxity in both extension and flexion. Final based on laxity and alignment we changed the preoperative assessment to obtain proper proper implant positioning and to correct deformity. Attention was then placed to the tibia. We made a tibial cut using the robot ensuring that both the MCL and the patella tendon were protected with retractors. We then went to the femur and made the posterior cut followed by the anterior cut and the anterior chamfer. The bone was then removed and we made a distal femur cut and a posterior chamfer cut. We verified all cuts. A trial reduction was performed with a size 3 femoral component and a size 2 keeled tibial component. The was patella was then resurfaced and sized to a 31. The patella tracked centrally, and no lateral retinacular release was necessary. The trial implants were removed. The arrays, pins, and checkpoints were all removed. We performed a verification that all pins were removed. The cut bone surfaces were lavaged. A size 3 right femoral component, a size 2 keeled tibial component and a 31mm patella were impacted into position. The knee was felt to be well balanced in the sagittal and coronal plane. The final 2x10 mm cruciate-substituting articular insert was impacted into the tibial tray. The knee was brought out to full extension, flexed up to 120 degrees. It was stable to varus and valgus stress and appropriately balanced in flexion and extension. The wounds were copiously irrigated following deflation of tourniquet. The medial retinaculum was reapproximated with #1 vicryl and quill. The subcutaneous tissues were closed with 0 and 2-0 interrupted Vicryl. The skin was closed with 3-0 Monofilament V loc suture. A sterile dressing was applied. The patient was transferred to a bed and brought to recovery in stable condition. The patient tolerated the procedure well. There were no intraoperative complications. Sponge and needle counts were correct times 2. As the attending surgeon, I attest I was present and performed the entire operation. Grafts/Implants Size 3 CR Femur Size 2 Tibia 11mm poly CS 31mm patella Anesthesia spinal Implants Implants comments: ti Pathology / specimen None Pathology comment: none Estimated Blood Loss 150 Condition Stable Disposition same day Surgeon Ike Moreira MD Surgical Staff Operation Date: 03/09/25 09:45 Case Staff SUPERINTENDENT OVERHEAD DISTRIBUTION: Deon Morin RNsap developer: Brittney Garzon
--- NOTE | 2025-03-09 10:44 | XR_ITS ---
EXAMINATION: Right knee 2 views TECHNIQUE: AP lateral right knee 2 views Date and time: March 09, 2025, 1209 hours INDICATIONS: Postop knee replacement FINDINGS: Total right knee arthroplasty. Satisfactory alignment. Moderate osteopenia. No fracture IMPRESSION: Total right knee arthroplasty with satisfactory alignment
--- NOTE | 2025-03-09 11:10 | SUR.PHASEI ---
1110 Patient arrived to recovery resting comfortably in [facility], drowsy and able to respond to verbal prompting by staff, on oxygen 3L via nasal cannula, breathing unlabored, vital signs stable, denies pain, dressing intact to right knee; prineo, telfa, abd, webril, braulio wraps, no bleeding noted, post spinal anesthesia assessment; patient unable to move bilateral lower extremities due to spinal anesthesia, patient has dermatome sensation at L1-groin, will continue to monitor, bilateral dorsalis pedis pulses present when palpated, patient has good circulation to right lower extremity; skin color normal for patient and warm to touch, report received from Kosta NORRIS/Kristopher ROADSIDE MECHANIC and Alvaro ARREOLA
--- NOTE | 2025-03-09 11:20 | SUR.PHASEI ---
1120 patient eating ice chips; tolerating well
--- NOTE | 2025-03-09 12:07 | SUR.PHASEI ---
1203: Assumed care. Pt fully awake, oriented x3. Resp even, unlabored. VS stable. Dressing to right knee dry, clean, intact. Bilateral pedal pulses strong, regular. Denies pain.
--- NOTE | 2025-03-09 12:25 | SUR.PHASEII ---
1210: Radiology here to take ordered x-rays. 1224: Pt tolerated procedure with no complaints voiced. Lunch tray ordered.
--- NOTE | 2025-03-09 12:45 | SUR.PHASEII ---
1244: Report to Sarah ARREOLA.
--- NOTE | 2025-03-09 12:50 | SUR.PHASEII ---
1250 patients daughter at bedside with patient
--- NOTE | 2025-03-09 13:50 | SUR.PHASEII ---
physical therapist Emi notified patient post spinal anesthesia complete, Emi stated she would be here at 1415 to work with patient
--- NOTE | 2025-03-09 14:43 | SUR.PHASEII ---
1440 patient cleared by physical therapy to proceed with discharge, also voided in the restroom
--- NOTE | 2025-03-09 14:56 | SUR.PHASEII ---
telephone order read-back order received from Kristopher GUSMAN Oxycodone IR 5mg oral tab x1 for pain
[2025-03-09] MEDS: oxyCODONE HCL 5 MG IR TAB PO (15:02)
--- NOTE | 2025-03-09 16:05 | SUR.PHASEII ---
patient is disconnected from vital signs monitor, dressed in her clothing, IV discontinued and awaiting her ride
--- NOTE | 2025-03-09 16:25 | SUR.PHASEII ---
1625 patient meets discharge criteria from recovery, awake and alert, breathing unlabored, vital signs stable, denies pain, dressing intact; no bleeding noted, patient able to dress herself into her clothing, voided in the restroom x2, discharge instructions given to patient and patients sister, sister signed discharge instructions. Patient given all her belongings prior to discharge, transported via wheelchair and left in a private vehicle.
== END 2025-03-09 16:25 | disposition home or self-care (01) ==
PROVIDERS: Anesthesiology; PCP Family Medicine; Referring Provider Orthopaedic Surgery Adult Reconstructive Orthopaedic Surgery; Visit Provider Orthopaedic Surgery Adult Reconstructive Orthopaedic Surgery
PROC: (CPT 20985; principal; 2025-03-09 09:45)
DX: M06.9 Rheumatoid arthritis, unspecified (principal); M17.11 Unilateral primary osteoarthritis, right knee; Z01.810 Encounter for preprocedural cardiovascular examination; M25.761 Osteophyte, right knee
CPT/HCPCS: 20985; 27447; 36415; 73560; 80053; 85025; 85610; 85730; 93005; 97162; A4217; A4649; C1713; C1776; J0690; J2250; J2371; J2704; J3010; J3490; J7030; A4648; A9270

== ENCOUNTER 2025-03-19 14:23 | Outpatient (AMB) | payer MEDICAID, SELFPAY ==
--- NOTE | 2025-03-19 14:39 | PD.ORTHCLVIS ---
Vital signs 03/19/25 14:44 Height 1.57 m Height Method Measured Weight 64.212 kg Weight Measurement Method Standing Scale BMI 26.0 BP 111/73 Blood Pressure Source Automatic Cuff Blood Pressure Location Left Upper Arm Position Sitting Respiration 18 Pulse 96 Pulse Source Monitor Temp 97.8 F Temp Source Temporal Artery Scan Pulse Oximetry (%) 98 Oxygen Delivery Method Room Air Med/Allergies Allergies & Medications Allergies No Known Allergies Allergy (Verified 03/19/25 14:45) Medication Reconciliation baclofen 10 mg tablet 10 mg PO QDAY 09/09/24 [History Confirmed 03/19/25] cholecalciferol (vitamin D3) 10 mcg (400 unit) capsule 10 mcg PO QDAY 09/09/24 [History Confirmed 03/19/25] folic acid 1 mg tablet 1 mg PO QDAY 09/09/24 [History Confirmed 03/19/25] gabapentin 400 mg capsule 400 mg PO BID 09/09/24 [History Confirmed 03/19/25] meloxicam 15 mg tablet 15 mg PO QDAY 09/09/24 [History Confirmed 03/19/25] solifenacin 10 mg tablet 10 mg PO QDAY 09/09/24 [History Confirmed 03/19/25] acetaminophen 500 mg tablet (Acetaminophen Extra Strength) 1,000 mg (2 x 500 mg) PO Q6H PRN pain #90 tabs 03/09/25 [Rx Confirmed 03/19/25] aspirin 81 mg tablet,delayed release 81 mg PO BID #60 tabs 03/09/25 [Rx Confirmed 03/19/25] doxycycline hyclate 100 mg tablet 100 mg PO BID #14 tabs 03/09/25 [Rx Confirmed 03/19/25] oxycodone 5 mg tablet 5 mg PO Q6H PRN pain #28 tabs 03/09/25 [Rx Confirmed 03/19/25] sennosides 8.6 mg-docusate sodium 50 mg tablet (Senna-S) 1 tab-cap PO QDAY #30 tabs 03/09/25 [Rx Confirmed 03/19/25] Exam Exam Patient is in no acute distress and is cooperative with the examination today. Breathing is nonlabored. Patient has a normal mood and affect. Bilateral extremities were evaluated and demonstrates sensation intact to light touch. Palpable pedal pulses are present. No significant edema is present. Bilateral hips were examined. The patient has no pain with log roll of the hips. Internal rotation to 30 degrees and external rotation to 30 degrees is painless. Negative FADIR. Right knee was examined today. The right knee is in neutral alignment. The incision is clean dry and intact. Assessment and Plan Problem List (1) Arthritis of right knee: Status: Acute Plan Patient is doing well status post right total knee replacement. We will start her with outpatient physical therapy. She should start her rheumatoid arthritis infusion and finish her DVT for prophylaxis. We will see her in 4 weeks for routine follow-up Office Procedures GNS Level of Care Nursing/Assessment Patient Status: Established Patient Nursing Assessment/Reassesment: Medication Reconciliation, Update PMH in EMR and Vital Signs Coordination of Care: Complex Care and Chronic Disease 1-5, Education Complex Pt/Fam, Consent,records obtained, informed consent, Results/Orders obtained and Staff clarify orders Established Patient Charge Established Patient Point Assignment: 95 Established Patient Point Charge: EP Level 3 (80-115) MA Intake Visit Data Collection New Patient or Established: Established Patient (seen at [facility] within 3 years) Reason for Visit:: 2 WEEK POST OP RT TKA Seen by Clinical Staff ONLY (RN/MA): No Upper Leather Cutter Required: No PCP or OBGYN visit in last 3 months: Yes Hx Now: No Do You Feel Safe at Home: Yes Authorities Contacted: N/A Questionairres Past Medical History Past Medical History Have you ever been diagnosed with any of the following: Neurological Problems Seizures: No Cardiology Problems Congestive Heart Failure: No Respiratory Problems Chronic Obstructive Pulmonary Disease (COPD): No Smoking: No Smoking Exposure: No Genital/Urinary Problems Renal Disease: No Reproductive Problems Previous Pregnancies: Yes Musculoskeletal Problems Rheumatoid Arthritis: Yes Head,Eye,Nose,Throat Problems Cataracts: Yes (not mature) Endocrine Problems Diabetes Mellitus Type 1: No Diabetes Mellitus Type 2: No Psychologic Problems Depression: Yes Other Problems Hospitalization: Yes Shingles: No Blood Transfusions: No Blood Transfusion Reaction: No Anesthesia Reactions: No Chicken Pox: Yes Cancer: No Surgical History Total Knee Replacement: Yes (01/08/2024 DR GALINA RODRIGUEZ) Subjective Visit Visit for: follow up visit and knee Immunization / Flu Flu Vaccine in the Last 12 Months: No Flu Vaccine Exclusion Criteria: No Exclusion Criteria History of Present Illness Chief complaint: 2 WEEK POST OP RT TKA Date of 1st surgery (if applicable): 08/2023 Patient is a 64-year-old female status post right total knee replacement. Incision looks great. We discussed that she can now start her infusion in approximately a week or so Personal History Occupation: RETIRED Red flag PMH: BMI BMI Counceling provided: Yes Pain Pain level (0-10): 9 Pain duration: ALL DAY Pain location: inside (medial), outside (lateral), anterior and posterior Pain quality: sharp, dull and aching Pain timing: increases with activity Associated signs & symptoms: weakness Ambulatory data Ambulatory device: walker Treatments Number of previous injections: 1 Improvement with previous injections: No Improvement with PT: No Improvement with NSAIDS: no Review of Systems Review of Systems: All systems negative unless otherwise noted in HPI.
[2025-03-19 14:44] VITALS: BP 111/73; PULSE 96; RESP 18; TEMP 36.6; O2SAT 98; BMI 26.0
== END 2025-03-19 15:05 | disposition home or self-care (01) ==
LOC: HODSRG 14:23
PROVIDERS: PCP Family Medicine; Referring Provider Family Medicine; Supervising Provider Orthopaedic Surgery Adult Reconstructive Orthopaedic Surgery; Visit Provider Orthopaedic Surgery Adult Reconstructive Orthopaedic Surgery
DX: Z47.1 Aftercare following joint replacement surgery (principal); Z96.651 Presence of right artificial knee joint
CPT/HCPCS: 99213; G0463

== ENCOUNTER 2025-04-21 10:53 | Outpatient (AMB) | payer MEDICAID, SELFPAY ==
--- NOTE | 2025-04-21 11:21 | PD.ORTHCLVIS ---
Vital signs 04/21/25 11:22 Height 1.57 m Height Method Stated Weight 64.524 kg Weight Measurement Method Standing Scale BMI 26.2 BP 112/74 Blood Pressure Source Automatic Cuff Blood Pressure Location Left Upper Arm Position Sitting Respiration 17 Pulse 87 Pulse Source Monitor Temp 96.6 F L Temp Source Temporal Artery Scan Pulse Oximetry (%) 97 Oxygen Delivery Method Room Air Med/Allergies Allergies & Medications Allergies No Known Allergies Allergy (Verified 04/21/25 11:23) Medication Reconciliation baclofen 10 mg tablet 10 mg PO QDAY 09/09/24 [History Confirmed 04/21/25] cholecalciferol (vitamin D3) 10 mcg (400 unit) capsule 10 mcg PO QDAY 09/09/24 [History Confirmed 04/21/25] folic acid 1 mg tablet 1 mg PO QDAY 09/09/24 [History Confirmed 04/21/25] gabapentin 400 mg capsule 400 mg PO BID 09/09/24 [History Confirmed 04/21/25] meloxicam 15 mg tablet 15 mg PO QDAY 09/09/24 [History Confirmed 04/21/25] solifenacin 10 mg tablet 10 mg PO QDAY 09/09/24 [History Confirmed 04/21/25] acetaminophen 500 mg tablet (Acetaminophen Extra Strength) 1,000 mg (2 x 500 mg) PO Q6H PRN pain #90 tabs 03/09/25 [Rx Confirmed 04/21/25] aspirin 81 mg tablet,delayed release 81 mg PO BID #60 tabs 03/09/25 [Rx Confirmed 04/21/25] doxycycline hyclate 100 mg tablet 100 mg PO BID #14 tabs 03/09/25 [Rx Confirmed 04/21/25] sennosides 8.6 mg-docusate sodium 50 mg tablet (Senna-S) 1 tab-cap PO QDAY #30 tabs 03/09/25 [Rx Confirmed 04/21/25] oxycodone 5 mg tablet 5 mg PO Q6H PRN pain #28 tabs 03/25/25 [Rx Confirmed 04/21/25] Exam Exam Patient is in no acute distress and is cooperative with the examination today. Breathing is nonlabored. Patient has a normal mood and affect. Bilateral extremities were evaluated and demonstrates sensation intact to light touch. Palpable pedal pulses are present. No significant edema is present. Bilateral hips were examined. The patient has no pain with log roll of the hips. Internal rotation to 30 degrees and external rotation to 30 degrees is painless. Negative FADIR. Right knee was examined today. The right knee is in neutral alignment. The incision is clean dry and intact. Assessment and Plan Problem List (1) Arthritis of right knee: Status: Acute Plan Patient is doing well status post right total knee replacement. We will start her with outpatient physical therapy. She should start her rheumatoid arthritis infusion and finish her DVT for prophylaxis. She is doing well postoperatively. We will see in 2 months with xrays Office Procedures GNS Level of Care Nursing/Assessment Patient Status: Established Patient Nursing Assessment/Reassesment: Medication Reconciliation, Update PMH in EMR and Vital Signs Coordination of Care: Complex Care and Chronic Disease 1-5, Education Complex Pt/Fam, Consent,records obtained, informed consent, Results/Orders obtained and Staff clarify orders Established Patient Charge Established Patient Point Assignment: 95 Established Patient Point Charge: EP Level 3 (80-115) MA Intake Visit Data Collection New Patient or Established: Established Patient (seen at [facility] within 3 years) Reason for Visit:: 4 WK R TKA Seen by Clinical Staff ONLY (RN/MA): No Botany Laboratory Assistant Required: No PCP or OBGYN visit in last 3 months: Yes Hx Now: No Do You Feel Safe at Home: Yes Authorities Contacted: N/A Questionairres Past Medical History Past Medical History Have you ever been diagnosed with any of the following: Neurological Problems Seizures: No Cardiology Problems Congestive Heart Failure: No Respiratory Problems Chronic Obstructive Pulmonary Disease (COPD): No Smoking: No Smoking Exposure: No Genital/Urinary Problems Renal Disease: No Reproductive Problems Previous Pregnancies: Yes Musculoskeletal Problems Rheumatoid Arthritis: Yes Head,Eye,Nose,Throat Problems Cataracts: Yes (not mature) Endocrine Problems Diabetes Mellitus Type 1: No Diabetes Mellitus Type 2: No Psychologic Problems Depression: Yes Other Problems Hospitalization: Yes Shingles: No Blood Transfusions: No Blood Transfusion Reaction: No Anesthesia Reactions: No Chicken Pox: Yes Cancer: No Surgical History Total Knee Replacement: Yes (01/08/2024 DR GALINA RODRIGUEZ) Subjective Visit Visit for: follow up visit and knee Immunization / Flu Flu Vaccine in the Last 12 Months: No Flu Vaccine Exclusion Criteria: No Exclusion Criteria History of Present Illness Chief complaint: 4 WEEK POST OP RT TKA Date of 1st surgery (if applicable): 08/2023 Patient is a 64-year-old female status post right total knee replacement. Incision looks great. We discussed that she can now start her infusion in approximately a week or so Personal History Occupation: RETIRED Red flag PMH: BMI BMI Counceling provided: Yes Pain Pain level (0-10): 9 Pain duration: ALL DAY Pain location: inside (medial), outside (lateral), anterior and posterior Pain quality: sharp, dull and aching Pain timing: increases with activity Associated signs & symptoms: weakness Ambulatory data Ambulatory device: walker Treatments Number of previous injections: 1 Improvement with previous injections: No Improvement with PT: No Improvement with NSAIDS: no Review of Systems Review of Systems: All systems negative unless otherwise noted in HPI.
[2025-04-21 11:22] VITALS: BP 112/74; PULSE 87; RESP 17; TEMP 35.9; O2SAT 97; BMI 26.2
== END 2025-04-21 11:24 | disposition home or self-care (01) ==
LOC: HODSRG 10:53
PROVIDERS: PCP Family Medicine; Referring Provider Family Medicine; Supervising Provider Orthopaedic Surgery Adult Reconstructive Orthopaedic Surgery; Visit Provider Orthopaedic Surgery Adult Reconstructive Orthopaedic Surgery
DX: Z47.1 Aftercare following joint replacement surgery (principal); Z96.651 Presence of right artificial knee joint
CPT/HCPCS: 99213; G0463